=== PATIENT | male | born 1945 ===

== ENCOUNTER → 2019-10-14 | Outpatient (CLI) | payer BC | LOC: HYPER 13:16 | DX: E11.622 Type 2 diabetes mellitus with other skin ulcer (principal); L97.821 Non-pressure chronic ulcer of other part of left lower leg limited to breakdown of skin; L97.811 Non-pressure chronic ulcer of other part of right lower leg limited to breakdown of skin; L84 Corns and callosities; L57.0 Actinic keratosis; E11.21 Type 2 diabetes mellitus with diabetic nephropathy; E66.3 Overweight; D64.9 Anemia, unspecified; I48.0 Paroxysmal atrial fibrillation; I87.2 Venous insufficiency (chronic) (peripheral); I42.9 Cardiomyopathy, unspecified; I25.10 Atherosclerotic heart disease of native coronary artery without angina pectoris; I10 Essential (primary) hypertension; Z20.1 Contact with and (suspected) exposure to tuberculosis; Z68.26 Body mass index [BMI] 26.0-26.9, adult ==